=== PATIENT | male | born 1955 | race American Indian/Alaskan Native ===

== ENCOUNTER 2018-06-14 07:09 | Day surgery (SDC) | payer MEDICARE ==
[2018-06-09 09:53] VITALS: BMI 26.9
[2018-06-14] MEDS ORDERED: cefTRIAXone (Rocephin) 1 gm Inj ONE (08:46)
[2018-06-14] MEDS ORDERED: Gentamicin 80 mg/2mL Inj. ONE (08:46)
[2018-06-14] MEDS ORDERED: Lidocaine PF 2% (5 ml) Inj (For Cardiac Arrhy) ONE (11:36)
[2018-06-14] MEDS ORDERED: Propofol 10 mg/ml Inj (20 ML) ONE (11:36)
[2018-06-14] MEDS ORDERED: Oxycodone/Acetaminophen 5/325 mg Tab PO PRN (11:49)
[2018-06-14] MEDS ORDERED: cefTRIAXone 1 GM in NS 100 ML BAG IVPB ONE (11:55)
[2018-06-14] MEDS ORDERED: Gentamicin 80 mg/2mL Inj. IVPB ONE (11:58)
[2018-06-14] MEDS ORDERED: Sodium Chloride 0.9% 1,000 ML IV SCH (12:15)
[2018-06-14 12:59] VITALS: BP 132/84; PULSE 71; RESP 20; TEMP 98; O2SAT 99
--- NOTE | 2018-06-14 17:08 | PN ---
DATE: 06/14/2018 IMMEDIATE POSTOP NOTE SUBJECTIVE: This is an immediate postop note. See the history and physical, and operative notes. For further details, very pleasant gentleman, he is in the recovery room. He is status post his prostate ultrasound biopsy. The patient is currently stable. Vital signs within normal limits. Resting comfortably. Physical exam is unchanged. DIAGNOSES: Elevated PSA, voiding dysfunction, nocturia. The urology plan, follow with antibiotics. Continue antibiotic prophylaxis. The patient to be discharged home with analgesics, antibiotics and Flomax. Further plans will follow depending on what we find clinically, awaiting the pathology, which was just done today. Marty Granger MD
--- NOTE | 2018-06-15 08:26 | OP ---
PROCEDURE DATE: 06/14/2018 PREOPERATIVE DIAGNOSES: Elevated prostate-specific antigen, voiding dysfunction, nocturia, irritative and infectious, complains of more obstructive in nature. POSTOPERATIVE DIAGNOSES: Elevated prostate-specific antigen, voiding dysfunction, nocturia, irritative and infectious, complains of more obstructive in nature. PROCEDURE: Ultrasound of prostate, ultrasound-guided prostate biopsy. SURGEON: Marty Granger MD. COMPLICATIONS: There were no complications. SPECIMEN SENT: Prostate cords, we sent a total of 12 cores plus from the random area of left base, left mid, left apex, right base, right mid, right apex. Two at each area, lateral, medial, lateral, medial, lateral, medial. Total of 12 cores. the specimen, we will send more. Total of at least 12 cores were sent. They were all sent off in jars labelled left and right. I do want to mention that the imaging shows the prostate at about 40 to 50 g. There are no specific hypoechoic lesions. There are prostatic calcifications of good amount. I took pictures, but today the machine is not able to print out. There are not printers connected. So we saved some images in the hope that we sent them to radiology to follow them. Now we took at least one picture just for ourselves. INDICATIONS: See history and physical. A very pleasant gentleman with elevated PSA, voiding dysfunction, here for the above procedure. We discussed options, risks, benefits, and alternatives. DESCRIPTION OF PROCEDURE: Patient was brought to the operating table, routine monitoring devices were placed. Patient was in decubitus position. A probe was inserted via the rectal region . The probe inserted via the rectum. We provided antibiotics prophylaxis with both Rocephin and gentamicin. We took pictures at random. There was no specific hypoechoic lesion. There were some prostatic calcifications noted. ____ left anally. We now begin our random biopsy section involving left base, left mid, left apex, right base, right mid, right apex. We did a total of 2 cores at least at each specimen and if we wanted more core, we did more depending on what the specimen look like. Overall we had good, looks like nice cores of tissue for the most part. Post biopsy records are within normal limits. We sent down jars labelled left and right. We did left base, left mid, left apex, right base, right mid, right apex and we did 2 at each area. Post biopsy records are within normal limits. The patient tolerated it without complications. The plan is we will follow the results. We will get the results to Dr. Narvaez. We will discuss modification. Patient is going home with antibiotic prophylaxis as well as Flomax and Tylenol #3. Marty Granger MD
--- NOTE | 2018-06-15 08:27 | HP ---
DATE OF EXAM: 06/14/2018 UROLOGY ADMISSION HISTORY AND PHYSICAL REASON FOR ADMISSION: Elevation PSA for prostate ultrasound and biopsy. HISTORY OF PRESENT ILLNESS: A very pleasant gentleman who is here today for prostate biopsy of moderate voiding dysfunction, irritated and obstructive urinary complaints. He has an elevated PSA, he has nocturia, has somewhat diminished force of stream, but no major complaints today. Just in here today for prostate ultrasound and biopsy with antibiotic prophylaxis. Past medical and surgical review as listed above. Otherwise, unremarkable from an urological standpoint. A patient of of [place], [place]. MEDICATIONS: See chart. ALLERGIES: See chart. SOCIAL HISTORY: Unremarkable. PHYSICAL EXAMINATION: GENERAL: A well-nourished male, in no apparent distress. VITAL SIGNS: Within normal limits including the chart. LUNGS: Clear. HEART: Normal S1, S2. ABDOMEN: Soft, nontender. No flank masses. No rebound or guarding. . No specific nodules have been noted. LABORATORY DATA: The labs are noted. DIAGNOSES: 1. Elevated prostate-specific antigen, voiding dysfunction. 2. Decreased force of stream, nocturia, irritated and obstructive urinary complaints, more obstructive in nature. PLAN AND FOLLOWUP; 1. Antibiotic prophylaxis. 2. Ultrasound of prostate. 3. Ultrasound-guided prostate biopsy . The risks and benefits were discussed at length. Marty Granger MD
== END 2018-06-14 14:00 | disposition home or self-care (01) ==
LOC: SDS 07:09
PROVIDERS: ATTEND Urology
DX: N40.1 Benign prostatic hyperplasia with lower urinary tract symptoms (principal); R97.20 Elevated prostate specific antigen [PSA]; R35.1 Nocturia

== ENCOUNTER 2018-10-11 07:45 | Emergency (ER) | payer MEDICARE ==
[2018-10-11 07:45] VITALS: BMI 26.9
--- NOTE | 2018-10-11 08:07 | ED PDOC ---
Arrival/HPI - General Chief Complaint: Lower Extremity Problem/Injury Time Seen by Provider: 10/11/18 07:58 Historian: Patient - History of Present Illness Narrative History of Present Illness (Text): 10/11/18 08:07 63 year old male, with no significant past medical history, presents to the emergency department complaining of left ankle pain for the past 4 days. Patient states the pain worsens with ambulation or when placing weight on the ankle. He does not recall any injury or trauma to the area. HE denies fevers, chills, headache, dizziness, chest pain, shortness of breath, dyspnea on exertion, cough, abdominal pain, nausea, vomiting, diarrhea, back pain, neck pain, or any other complaint. PMD: Dr. Narvaez Time/Duration: < week (4 days) Symptom Onset: Gradual Symptom Course: Unchanged Activities at Onset: Light Context: Home Past Medical History - Provider Review Nursing Documentation Reviewed: Yes - Infectious Disease Hx of Infectious Diseases: None - Cardiac Hx Pacemaker: No - Neurological Hx Paralysis: No - Hematological/Oncological Hx Blood Transfusions: No - Musculoskeletal/Rheumatological Hx Musculoskeletal Disorders: Yes - Psychiatric Hx Emotional Abuse: No Hx Physical Abuse: No Hx Substance Use: No - Anesthesia Hx Anesthesia Reactions: No Hx Malignant Hyperthermia: No - Suicidal Assessment Feels Threatened In Home Enviroment: No Family/Social History - Physician Review Nursing Documentation Reviewed: Yes Family/Social History: No Known Family HX Smoking Status: Never Smoked Hx Alcohol Use: No Hx Substance Use: No Allergies/Home Meds Allergies/Adverse Reactions: Allergies No Known Allergies Allergy (Verified 06/09/18 09:53) Home Medications: Home Meds Medication Instructions Recorded Confirmed No Known Home Med 10/11/18 10/11/18 Review of Systems - Physician Review All systems were reviewed & negative as marked: Yes - Review of Systems Constitutional: absent: Fevers Cardiovascular: absent: Chest Pain Physical Exam - Physical Exam Narrative Physical Exam (Text): 10/11/18 08:09 Constitutional: No acute distress. Head: Normocephalic. Atraumatic. Eyes: PERRL. ENT: Moist mucous membranes. Neck: Supple. Musculoskeletal: Point tenderness to the left ATFL, no edema, no erythema, full ROM of digits and ankles. Distal pulses intact. Skin: No rash. Neurologic: Alert, no focal deficit. Vital Signs Reviewed: Yes Vital Signs Temp Pulse Resp BP Pulse Ox 10/11/18 07:50 98.3 F 84 18 142/89 99 Temperature: Afebrile Blood Pressure: Normal Pulse: Regular Respiratory Rate: Normal Appearance: Positive for: Well-Appearing, Non-Toxic, Comfortable Pain Distress: None Mental Status: Positive for: Alert and Oriented X 3 Medical Decision Making ED Course and Treatment: 10/11/18 08:13 Impression: 63 year old male, who presents to the emergency department complaining of left ankle pain. Plan: -- Left ankle X-ray -- Reassess and disposition Progress Notes: XR no fracture or dislocation. EVERARDO wrap applied, patient declined crutches, f/u Ortho. - RAD Interpretation Radiology Orders: 10/11/18 08:06 ANKLE LEFT 3 VIEWS ROUTINE [RAD] Stat Radio Artist: Radiologist - Scribe Statement The provider has reviewed the documentation as recorded by the Scribe Evelyne Paez Provider Scribe Attestation: All medical record entries made by the Scribe were at my direction and personally dictated by me. I have reviewed the chart and agree that the record accurately reflects my personal performance of the history, physical exam, medical decision making, and the department course for this patient. I have also personally directed, reviewed, and agree with the discharge instructions and d isposition. Disposition/Present on Arrival - Present on Arrival Any Indicators Present on Arrival: No History of DVT/PE: No History of Uncontrolled Diabetes: No Urinary Catheter: No History of Decub. Ulcer: No History Surgical Site Infection Following: None - Disposition Have Diagnosis and Disposition been Completed?: Yes Diagnosis: Ankle sprain Disposition: HOME/ ROUTINE Disposition Time: 10:41 Patient Plan: Discharge Condition: STABLE Discharge Instructions (ExitCare): Ankle Sprain Referrals: Miesha Brown MD [Staff Provider] - Follow up with primary Forms: [employer] ([place])
[2018-10-11 10:30] VITALS: RESP 18
[2018-10-11 11:02] VITALS: BP 124/86; PULSE 64; TEMP 98.8; O2SAT 98
--- NOTE | 2018-10-11 11:20 | RAD ---
Date of service: 10/11/2018 PROCEDURE: Left Ankle Radiographs. HISTORY: ankle pain COMPARISON: None available. FINDINGS: BONES: Normal. No fracture. JOINTS: Normal. No osteoarthritis. Ankle mortise maintained. Talar dome intact SOFT TISSUES: Normal. OTHER FINDINGS: None. IMPRESSION: Normal left ankle radiographs.
== END 2018-10-11 11:02 | disposition home or self-care (01) ==
LOC: ED 07:45
DX: S93.402A Sprain of unspecified ligament of left ankle, initial encounter (principal); X58.XXXA Exposure to other specified factors, initial encounter